=== PATIENT | female | born 1980 | race African-American/Black ===

== ENCOUNTER 2016-06-18 09:27 | Inpatient (IN) | payer OTHER ==
[~2016-06-18] VITALS: Ht 154.9 cm; Wt 69.3 kg
[2016-06-18 10:41] LABS: BASOPHILS 0.1 % (0-2); EOSINOPHILS 0 % (0-7); HEMATOCRIT 46.1 % (36.0-48.0); HEMOGLOBIN 14.3 g/dL (12-16); IMMATURE GRANULOCYTES 0.7 % (0-5); LYMPHOCYTES 7.4 % (15-50); MCH 25.6 pg (26.0-34.0); MCV 82.5 fL (80.0-100.0); MEAN PLATELET VOLUME 11.8 fL (7.4-10.4); MONOCYTES 8.3 % (2-11); NEUTROPHILS 83.5 % (40-80); PLATELET COUNT 173 10x3/uL (130-400); RBC 5.59 10x6/uL (4.00-5.40); RDW 12.7 % (11.5-14.5)
[2016-06-18 11:13] LABS: HCG SERUM NEGATIVE (NEGATIVE)
[2016-06-18 11:20] LABS: ALBUMIN 2.7 g/dL (3.4-5.0); ANION GAP 24.2 mmol/L (8-16); BILIRUBIN - TOTAL 0.85 mg/dL (0.2-1.3); CALCIUM 8.7 mg/dL (8.5-10.1); CARBON DIOXIDE 18.2 mmol/L (21.0-32.0); CREATININE - SERUM 1.4 mg/dL (0.6-1.3); POTASSIUM - SERUM 5.4 mmol/L (3.5-5.1); PROTEIN - SERUM 7.4 g/dL (6.4-8.2)
[2016-06-18 11:30] LABS: KETONE - SERUM SMALL mg/dL (NEGATIVE)
[2016-06-18 11:58] LABS: AMYLASE - SERUM 24 U/L (25-115); LIPASE 60 U/L (73-393); MAGNESIUM - SERUM 2.1 mg/dL (1.8-2.4)
[2016-06-18 12:33] LABS: APPEARANCE CLEAR (CLEAR); BACTERIA NONE SEEN /hpf (NONE SEEN); BILIRUBIN NEGATIVE (NEGATIVE); COLOR YELLOW (YELLOW); EPITHELIAL CELLS NSEEN /hpf (0-5); GLUCOSE 1000 mg/dL (NEGATIVE); KETONE MODERATE mg/dL (NEGATIVE); LEUKOCYTE ESTERASE TRACE (NEGATIVE); NITRITE NEGATIVE (NEGATIVE); PROTEIN TRACE mg/dL (NEGATIVE); UROBILINOGEN NORMAL (NORMAL)
--- NOTE | 2016-06-18 19:30 | NUR ---
RECEIVED PT VIA WC FROM ED, PT TO ROOM 1215, PT TRANSFERS SELF TO BED WITH NO DIFFICULTY, PT ORIENTED TO ROOM, BED IN LOW POSITION, SIDE RAILS X 2, CALL LIGHT IN REACH
--- NOTE | 2016-06-18 19:35 | NUR ---
ADMITTING ASSESSMENT AND HISTORY STARTED, SEE FLOW SHEETS, VS OBTAINED PER RHIANNON BECKFORD RN
--- NOTE | 2016-06-18 19:50 | NUR ---
DR BRIANNA LANGFORD
--- NOTE | 2016-06-18 19:58 | NUR ---
DR REED CALLS UNIT, ORDERS RECEIVED FOR NS TO INFUSE AT 100 ML/HR, ADA DIET, AND CONTACT DR DESOUZA FOR HOME MEDS
[2016-06-18 20:07] VITALS: BP 112/84; BMI 30.3
--- NOTE | 2016-06-18 20:15 | NUR ---
ADMITTING ASSESSMENT AND HISTORY COMPLETED, PT UP TO BR, GAIT STEADY, VOIDED 400 MLS OF DARK YELLOW URINE, PT TO SINK TO WASH HANDS, BACK TO BED, SCD'S APPLIED AND WORKING PROPERLY, PT REQUESTED AND SERVED DIET SODA
[2016-06-18] MEDS ORDERED: LANTUS INSULIN10 ML SC (20:19)
[2016-06-18] MEDS ORDERED: NOVOLOG100 U/M1 SC (20:20)
[2016-06-18] MEDS ORDERED: GLUCOPHAGE500 MG PO (20:20)
--- NOTE | 2016-06-18 20:27 | NUR ---
KENNY NANCE NP PAGED
--- NOTE | 2016-06-18 20:35 | NUR ---
KENNY NANCE, STRATEGIC COMMUNICATIONS MANAGER CALLS UNIT, ORDERS RECEIVED
--- NOTE | 2016-06-18 20:59 | NUR ---
SALINE LOCK CONVERTED TO IV, NS INFUSING AT 100 ML/HR AND DILAUDID ASSOCIATE PROFESSOR INITIATED PER MD ORDERS, SEE EMAR, PT INST ON AND VERBALIZES UNDERSTANDING OF ASSOCIATE PROFESSOR, PT PUSHES BUTTON AT THIS TIME
--- NOTE | 2016-06-18 21:10 | NUR ---
ROCEPHIN INITIATED PER MD ORDERS
--- NOTE | 2016-06-18 21:26 | NUR ---
FSBS OBTAINED PER RHIANNON BECKFORD RN
--- NOTE | 2016-06-18 21:26 | NUR ---
PT DRUG COORDINATOR LIGHT, SCD'S DISCONNECTED, PT UP TO BR, VOIDED 150 MLS OF DARK YELLOW URINE, PT TO SINK TO WASH HANDS, PT BACK TO BED, SCD'S RECONNECTED AND WORKING PROPERLY, REQUESTED AND SERVED SANDWICH TRAY, DENIES FURTHER NEEDS, FAMILY AT BEDSIDE
--- NOTE | 2016-06-18 22:23 | NUR ---
ADM 2100 MEDS, SEE EMAR, SCD'S DISCONNECTED, PT UP TO BR, GAIT STEADY, VOIDED 150 MLS OF DARK YELLOW URINE BY SELF WITH NO DIFFICULTY, PT TO SINK TO WASH HAND, BACK TO BED, SCD'S RECONNECTED AND WORKING PROPERLY, DENIES FURTHER NEEDS
--- NOTE | 2016-06-18 23:00 | NUR ---
PT AMB TO MIGRATORY WORKER, GAIT STEADY, PT WANTS TO WASH UP, WASH CLOTHS, TOWELS, AND ALOE VESTA, ALSO, GOWN AND BRANDEN PANTIES, PT DENIES FURTHER NEEDS
[2016-06-19] VITALS: BP 113/70
--- NOTE | 2016-06-19 | NUR ---
PT TALKING ON PHONE, VS OBTAINED, PT REQUESTED AND SERVED FRESH H20, PT DENIES FURTHER NEEDS
--- NOTE | 2016-06-19 01:10 | NUR ---
PT BONDING MACHINE SETTER LIGHT, SCD'S DISCONNECTED, UP TO BR, VOIDED 300 MLS OF DARK YELLOW URINE BY SELF WITH NO DIFFICULTY, PT TO SINK TO WASH HANDS, BACK TO BED, SCD'S RECONNECTED AND WORKING PROPERLY, RATES ABD PAIN 5/10, DENIES NEEDS AT THIS TIME
--- NOTE | 2016-06-19 02:10 | NUR ---
PT RESTING WITH EYES CLOSED, RESP QUIET, NO DISTRESS NOTED, LEFT UNDISTURBED AT THIS TIME
[2016-06-19 04:19] VITALS: BP 105/64
--- NOTE | 2016-06-19 04:19 | NUR ---
PT RESTING WITH EYES CLOSED, AROUSES TO SOFT VERBAL STIMULATION, VS OBTAINED, I&O'S COLLECTED, PT RATES RIGHT ABD QUAD PAIN 07/04, PT REMOVED SCD'S AND REFUSES TO PUT THEM BACK ON AT THIS TIME, PT DENIES NEEDS
--- NOTE | 2016-06-19 06:00 | NUR ---
PT RESTING WITH EYES CLOSED, RESP QUIET, NO DISTRESS NOTED, LEFT UNDISTURBED AT THIS TIME
--- NOTE | 2016-06-19 06:35 | NUR ---
LAB TO ROOM FOR AM BLOOD DRAW
[2016-06-19 06:59] LABS: BASOPHILS 0 % (0-2); EOSINOPHILS 0.2 % (0-7); HEMATOCRIT 38.5 % (36.0-48.0); HEMOGLOBIN 12.3 g/dL (12-16); IMMATURE GRANULOCYTES 3.1 % (0-5); LYMPHOCYTES 5.9 % (15-50); MCH 25.7 pg (26.0-34.0); MCHC 31.9 g/dL (31.0-37.0); MEAN PLATELET VOLUME 11.6 fL (7.4-10.4); MONOCYTES 8.1 % (2-11); NEUTROPHILS 82.7 % (40-80); PLATELET COUNT 174 10x3/uL (130-400); RBC 4.79 10x6/uL (4.00-5.40); RDW 13.2 % (11.5-14.5); WBC 15.7 10x3/uL (4.8-10.8)
--- NOTE | 2016-06-19 07:00 | NUR ---
SHIFT REPORT TO ELIZABETH FRIAS RN
[2016-06-19 07:01] LABS: MCV 80.4 fL (80.0-100.0)
[2016-06-19 07:11] LABS: CALCIUM 8.6 mg/dL (8.5-10.1); CARBON DIOXIDE 22.7 mmol/L (21.0-32.0); CHLORIDE - SERUM 97 mmol/L (98-107); SODIUM 131 mmol/L (136-145)
[2016-06-19 07:14] LABS: CALC OSMOLALITY 268 mosm/kg (275-300); CREATININE - SERUM 0.8 mg/dL (0.6-1.3); GLUCOSE 197 mg/dL (74-106); POTASSIUM - SERUM 4.3 mmol/L (3.5-5.1); UREA NITROGEN 14 mg/dL (7-18); eGFR NON AFRICAN AMERICAN 87 mL/min (90-120)
[2016-06-19 07:15] VITALS: BP 130/76
--- NOTE | 2016-06-19 07:15 | NUR ---
PT WAS RECEIVED THIS AM LYING IN BED. GEN- AWAKE AND ALERT. LUNGS- CLEAR. HEART- RRR. ABD-SOFT WITH SOME TENDERNESS LOWER ABDOMEN NOTED. EXT WITH SCD'S NOTED. NO EDEMA. PULSES PALPABLE. IV PATENT R CHEST. NS INFUSING AT 100 CC/HR. DILAUDID SUPERVISOR SOLDER MAKING 0.2 Q 10 MIN. FINGERSTICK BS WAS 200. RECEIVED 2 UNITS OF HUMALOG INSULIN SUB CU. BED IS LOW. SIDE RAILS UP X 2 AND CALL LIGHT IS IN REACH. SHE STATES HER PAIN IS A 10 AT THIS TIME.
--- NOTE | 2016-06-19 07:18 | NUR ---
FSBS 200
--- NOTE | 2016-06-19 07:21 | NUR ---
NEW BAG OF NS HUNG IV PER MD ORDERS, SEE EMAR, PT ADM OWN INSULIN PER REQUEST, PT DENIES NEEDS
--- NOTE | 2016-06-19 07:47 | NUR ---
PT C/O NAUSEA. SHE WOULD LIKE TO GET SOME ZOFRAN BEFORE TRYING TO EAT BREAKFAST. ZOFRAN GIVEN IV.
--- NOTE | 2016-06-19 08:00 | NUR ---
PT STATES THAT SHE DOES NOT FEEL SHE CAN EAT REGULAR DIET AT THIS TIME. REQUESTED JELLO AND WATER. TOLERATED THIS WELL.
--- NOTE | 2016-06-19 09:15 | NUR ---
DR WATSON WAS CONSULTED BY DR REED FOR PYELONEPHRITIS. I TALKED TO DR WATSON AND SHE ORDERED A URINE CULTURE TO BE DONE. PT GIVEN SPECIMEN CUP AND INSTRUCTED ON OBTAINING A CLEAN CATCH URINE.
--- NOTE | 2016-06-19 09:58 | NUR ---
PT OBTAINED CLEAN CATCH URINE FOR UA AND CULTURE. SENT TO LAB.
[2016-06-19 09:59] VITALS: Ht 154.9 cm; Wt 69.3 kg
--- NOTE | 2016-06-19 11:11 | NUR ---
PT SI WAKING UP AND GOING TO THE BATHROOM. SHE STATES THAT HER PAIN IS STILL A 5.
--- NOTE | 2016-06-19 12:13 | NUR ---
Pt states she is sick at her stomach. To early to give zofran at this time. Will call md to see if there is something she can have now. It will be 2 more hours before zofran can be given.
--- NOTE | 2016-06-19 12:49 | NUR ---
PT C/O NAUSEA AND ASKED FOR ZOFRAN. EXPLAINED ZOFRAN IS ORDERED Q 6 H. I CALLED YASMINE BECERRA AND SHE CHANGED TO EVERY 4 HRS PRN. GIVEN.
--- NOTE | 2016-06-19 14:30 | NUR ---
PT IS SLEEPING IN BED. BED IS LOW, SIDE RAILS UP X 2 AND CALL LIGHT IN REACH.
--- NOTE | 2016-06-19 14:56 | NUR ---
Patient Name: MANUELA VILLALOBOS Admission Status: ER Accout number: [id number] Admission Date: 06-18-2016 : 1980 Admission Diagnosis: Attending: VARSHA Current LOS: 1 Anticipated DC Date: 06-21-2016 Planned Disposition: Home with Home Health Primary Insurance: [facility] MANAGED MEDICAID Discharge Planning Comments: CM met with patient to discuss discharge planning / needs. Patient states her plan is to return home at discharge. States her home environment is safe. States she was completely independent with all ADL's and IADL's prior to hospitalization. States that her , Michael Epperson [phone] or her mother, Melina Howard [phone] home upon discharge. Patient states that one of her physicians told her she would probably go home with IV antibiotics and a PICC line. CM informed patient about home health services with [facility] for IV antibiotics and PICC line care. Patient chose [facility]st, then [facility] and [facility] as her 3rd choice. CM called [facility] and [facility] neither agency is in network with patient's insurance. CM called [facility] with referral information. Awaiting call back for determination. Patient denies any other discharge planning needs at this time. CM will follow up with home health. CM will continue to assist as needed with discharge planning / needs. Is the patient Alert and Oriented? Yes * How many steps to enter\exit or inside your home? 2 * PCP STATES DR DESOUZA IS GOING TO BE MY PCP * Pharmacy [facility] * Preadmission Environment Home with Family * ADLs Independent * Equipment None * List name and contact numbers for known caregivers / representatives who currently or will assist patient after discharge: SPOUSE, MICHAEL EPPERSON [phone]. MOTHER, MELINA HOWARD [phone] * Community resources currently utilized None * Additional services required to return to the preadmission environment? No * Can the patient safely return to the preadmission environment? Yes * Has this patient been hospitalized within the prior 30 days at any hospital? No Location Director: Tala Mckeon
--- NOTE | 2016-06-19 16:40 | NUR ---
PT IS RESTING IN BED. OFFERS NO COMPLAINTS. BED IS LOW, SIDE RAILS UP X 2 AND CALL LIGHT IN REACH.
--- NOTE | 2016-06-19 17:49 | NUR ---
PTS BS WAS 227. 8 UNITS OF HUMALOG GIVEN.
--- NOTE | 2016-06-19 17:49 | NUR ---
PTS BS WAS CHECKED AND WAS 272. 8 UNITS OF INSULIN GIVEN.
[2016-06-19 19:25] VITALS: BP 125/73
--- NOTE | 2016-06-19 19:25 | NUR ---
ASSESSMENT PER FLOW SHEET, VS OBTAINED, IV IN RIGHT CHEST INTACT WITH NO REDNESS OR EDEMA INFUSING VIA PUMP NS AT 100 ML/HR, DILAUDID MANAGER SHIFT TO DELIVER 0.2MG/10MINS PER PT'S DEMAND FOR PAIN CONTROL, PT RATES ABD PAIN 09/03, MANAGER SHIFT BUTTON NOTED TO BE GREEN, ENC PT TO PUSH BUTTON AT THIS TIME, PT DID NOT PUSH, PT INST ON THAT IS WHAT WILL HELP HER WITH HER PAIN, PT VERBALIZES UNDERSTANDING, PT REPORTS FLATUS, BM TODAY AND VOIDING BY SELF WITH NO DIFFICULTY, PT REQUESTS SCD'S OFF AT THIS TIME, INFORMED PT WILL PLACE AT BEDTIME, PT VERBALIZES UNDERSTANDING, DENIES NEEDS AT THIS TIME
--- NOTE | 2016-06-19 20:14 | NUR ---
PT SITTING UP IN RECLINER, REQUESTED AND SERVED DIET LEMON NAKNEK SODA, DENIES FURTHER NEEDS
--- NOTE | 2016-06-19 21:12 | NUR ---
PT SITTING UP IN RECLINER, FSBS 172
--- NOTE | 2016-06-19 21:16 | NUR ---
THIS RN AND PEPE SPRINGER, RN IN ROOM TO VERIFY INSULIN, ADM 2100 MEDS, SEE EMAR, PT ADM HUMALOG PER SELF, THIS RN ADM TRACY, PT INST ON HOW TO USE PEN, PT VERBALIZES UNDERSTANDING, SNACK PROVIDED, PT DENIES FURTHER NEEDS
--- NOTE | 2016-06-19 22:35 | NUR ---
PT ELECTRICAL CONTROLS TECHNICIAN LIGHT, PT REPORTS VOIDING, EMPTIED 500 MLS OF LIGHTLY BLOOD TINGED URINE, PT ON MENSES, PT REQUESTED AND SERVED FRESH H20, PT DENIES FURTHER NEEDS
[2016-06-19 23:25] VITALS: BP 116/78
--- NOTE | 2016-06-19 23:25 | NUR ---
PT GETTING READY FOR BED, VS OBTAINED, REFUSES SCD'S, PT DENIES NEEDS AT THIS TIME
--- NOTE | 2016-06-20 01:30 | NUR ---
PT RESTING WITH EYES CLOSED, RESP QUIET, NO DISTRESS NOTED, LEFT UNDISTURBED AT THIS TIME
[2016-06-20 03:20] VITALS: BP 116/78
--- NOTE | 2016-06-20 03:20 | NUR ---
PT AWAKE, VS OBTAINED, I&O'S COLLECTED, PT RATES ABD PAIN 09/03, ENC PT TO PUSH GENERAL ACCOUNTANT BUTTON THIS TIME, PT PUSHES BUTTON, PT REQUESTED AND SERVED CUP OF ICE, PT DENIES FURTHER NEEDS
--- NOTE | 2016-06-20 03:55 | NUR ---
PT MATRIX WORKER LIGHT, PT REQUESTED AND PROVIDED BRANDEN PADS AND PANTIES, PT REPORTS VOIDING 700 MLS BY SELF WITH NO DIFFICULTY, PT DENIES FURTHER NEEDS
--- NOTE | 2016-06-20 05:05 | NUR ---
PT LINT CLEANER LIGHT, PT UP IN ROOM, PT TO SCALES, WEIGHT 149, PT BACK TO ROOM FOR AM BLOOD DRAW
--- NOTE | 2016-06-20 06:00 | NUR ---
PT COLOR STRAINER LIGHT, REPORTS SHE VOIDED 100 MLS BY SELF WITH NO DIFFICULTY
[2016-06-20 06:13] LABS: BASOPHILS 0.1 % (0-2); EOSINOPHILS 0.2 % (0-7); HEMATOCRIT 37.5 % (36.0-48.0); HEMOGLOBIN 12.1 g/dL (12-16); IMMATURE GRANULOCYTES 2.8 % (0-5); LYMPHOCYTES 8.2 % (15-50); MCH 25.7 pg (26.0-34.0); MCHC 32.3 g/dL (31.0-37.0); MCV 79.8 fL (80.0-100.0); MEAN PLATELET VOLUME 11.1 fL (7.4-10.4); MONOCYTES 9.6 % (2-11); NEUTROPHILS 79.1 % (40-80); PLATELET COUNT 182 10x3/uL (130-400); RDW 13.4 % (11.5-14.5); WBC 19.2 10x3/uL (4.8-10.8)
[2016-06-20 06:34] LABS: CALC OSMOLALITY 268 mosm/kg (275-300); CALCIUM 8.6 mg/dL (8.5-10.1); CARBON DIOXIDE 21.5 mmol/L (21.0-32.0); CHLORIDE - SERUM 98 mmol/L (98-107); CREATININE - SERUM 0.8 mg/dL (0.6-1.3); GLUCOSE 203 mg/dL (74-106); POTASSIUM - SERUM 3.4 mmol/L (3.5-5.1); SODIUM 132 mmol/L (136-145); UREA NITROGEN 8 mg/dL (7-18); eGFR NON AFRICAN AMERICAN 87 mL/min (90-120)
--- NOTE | 2016-06-20 06:56 | NUR ---
SHIFT REPORT TO DAY SHIFT
--- NOTE | 2016-06-20 07:30 | NUR ---
PT IS RECEIVED LYING IN BED. PT IS SLEEPING. AWAKENS EASILY. PT STATES HER PAIN IS A 7. I ENCOURAGED HER TO USE HER KITMAN. GEN- AWAKE AND ALERT, LUNGS- CLEAR. HEART- RRR. ABD- SOFT WITH TENDERNESS RUQ. EXT- NO EDEMA NOTED. IV WITH SWELLING NOTED R CHEST AREA AND IS TENDER TO TOUCH. IV INFILTRATED. D'CD IV WITH TIP INTACT. IV WAS RESITED TO LEFT HAND AND IS PATENT. SCD'S NOTE BILATERAL LE. BED IS LOW, SIDE RAILS UP X 2 AND CALL LIGHT IS IN REACH.
[2016-06-20 08:02] VITALS: BP 117/77
--- NOTE | 2016-06-20 08:51 | NUR ---
JOSE ENRIQUE MCDANIELS IV ACCESS NURSE STARTED NEW IV L HAND. SALINE LOCKED AND IV SITE COVERED WITH GLOVE FOR PT TO TAKE A SHOWER.
--- NOTE | 2016-06-20 08:57 | NUR ---
I TALKED TO BECCA CHAPA RN INFECTION CONTROL NURSE ABOUT BLOOD CULTURE - COAGULASE NEGATIVE STAPH ON 2ND BLOOD CULTURE. IST ONE WAS NO GROWTH. SHE STATES THAT THAT IS A CONTAMINANT USUALLY AND SHE REQUIRES NO ISOLATION.
--- NOTE | 2016-06-20 09:42 | NUR ---
PT HAD NAUSEA AND VOMITING. GIVEN ZOFRAN AND OTHER 9 AM MEDS.
--- NOTE | 2016-06-20 09:54 | NUR ---
DR WATSON IS HERE TO SEE PT. NEW ORDERS NOTED.
--- NOTE | 2016-06-20 09:55 | NUR ---
CM received call back from Kailee Bonner with [facility]. Agency is in network with patient's insurance and agency will accept referral. Informed agency that CM will continue to follow patient and will keep agency apprised of pending discharge and discharge needs.
--- NOTE | 2016-06-20 11:48 | NUR ---
PTS BS TAKEN WHICH WAS 191. SHE WAS GIVEN 4 UNITS OF HUMALOG INSULIN.
--- NOTE | 2016-06-20 11:56 | NUR ---
PTS BS WAS 191. 4 UNITS OF HUMALOG INSULIN GIVEN. PT IS SITTING ON SIDE OF BED. LUNCH SERVED.
--- NOTE | 2016-06-20 12:30 | NUR ---
PT IS SLEEPING. BED IS LOW, SIDE RAILS UP X 2 AND CALL LIGHT IN REACH.
--- NOTE | 2016-06-20 13:40 | NUR ---
PT IS SLEEPING. BED IS LOW. SIDE RAILS UP X 2 AND CALL LIGHT IN REACH.
--- NOTE | 2016-06-20 14:58 | NUR ---
US DEPT CALLED AND WANTED TO KNOW WHAT WAS BEING LOOKED AT ON LIMITED US. SHE STATES [facility] THEY WILL PROBABLY WANT A COMPLETE US TO LOOK AT BOTH KIDNEYS AND ASKED ME TO CALL DR REED. CONTACTED DR REED AND HIS NURSE OK'D COMPLETE ABDOMINAL US. US NOTIFIED.
--- NOTE | 2016-06-20 15:36 | NUR ---
PT IS SLEEPING. BED IS LOW, SIDE RAILS UP X 2 AND CALL LIGHT IN REACH.
--- NOTE | 2016-06-20 17:47 | NUR ---
DR REED HERE TO SEE PT. HE STATES THAT HER US RESULTS NOT COMPLETED YET. CONTINUE CURRENT PLAN OF CARE.
--- NOTE | 2016-06-20 18:13 | NUR ---
PT IS RESTING. OFFERS NO COMPLAINTS. BED IS LOW SIDE RAILS UP X 2 AND CALL LIGHT IN REACH. IV PATENT LEFT HAND.
[2016-06-20 19:30] VITALS: BP 125/76
--- NOTE | 2016-06-20 19:30 | NUR ---
AWAKE DURING INITIAL ROUNDS. INTRODUCED SELF. V/S TAKEN. ASSESSMENT DONE. STATUS PYELONEPHRITIS R KIDNEY. WITH IVF NS TO L HAND @ 100cc/hr. IV SITE OK. ON DILAUDID APPLIED SCIENCE AND TECHNOLOGIES DEAN FOR PAIN CONTROL.
--- NOTE | 2016-06-20 21:19 | NUR ---
FSBS @ HS 177mg/dl. HUMALOG 4units SQ GIVEN. LANTUS 10units GIVEN ORDERED AT HS. ROCEPHIN 1G IVPB INFUSING. NO ADVERSE REACTION NOTED. SPOUSE AND DAUGHTER IN THE ROOM VISITING.
--- NOTE | 2016-06-20 21:50 | NUR ---
TAKING A SHOWER. COMPLETE BED LINEN CHANGED.
[2016-06-21 01:19] VITALS: BP 111/70
--- NOTE | 2016-06-21 01:27 | NUR ---
V/S STABLE. UP TO THE BATHROOM. VOIDED.
--- NOTE | 2016-06-21 04:05 | NUR ---
EYES CLOSED. LEFT UNDISTURBED.
--- NOTE | 2016-06-21 06:24 | NUR ---
FSBS 186mg/dl. HUMALOG 4units SQ TO ABD LLQ. SEE E-MAR. SLEFT ON AND OFF DURING THE NIGHT. CONTINUING PLAN OF CARE.
[2016-06-21 07:28] LABS: BASOPHILS 0.1 % (0-2); EOSINOPHILS 0.1 % (0-7); HEMATOCRIT 34.6 % (36.0-48.0); IMMATURE GRANULOCYTES 1.6 % (0-5); LYMPHOCYTES 9.8 % (15-50); MCH 25.2 pg (26.0-34.0); MCHC 31.8 g/dL (31.0-37.0); MCV 79.4 fL (80.0-100.0); MEAN PLATELET VOLUME 10.5 fL (7.4-10.4); MONOCYTES 6.9 % (2-11); NEUTROPHILS 81.5 % (40-80); PLATELET COUNT 182 10x3/uL (130-400); RBC 4.36 10x6/uL (4.00-5.40); RDW 13.6 % (11.5-14.5)
[2016-06-21 07:29] LABS: WBC 13.8 10x3/uL (4.8-10.8)
[2016-06-21 07:42] LABS: CALC OSMOLALITY 271 mosm/kg (275-300); CALCIUM 7.9 mg/dL (8.5-10.1); CARBON DIOXIDE 23.8 mmol/L (21.0-32.0); CHLORIDE - SERUM 100 mmol/L (98-107); CREATININE - SERUM 0.7 mg/dL (0.6-1.3); GLUCOSE 164 mg/dL (74-106); POTASSIUM - SERUM 3.3 mmol/L (3.5-5.1); SODIUM 135 mmol/L (136-145); UREA NITROGEN 6 mg/dL (7-18); eGFR NON AFRICAN AMERICAN > 90 mL/min (90-120)
--- NOTE | 2016-06-21 07:45 | NUR ---
PATIENT SITTING UPRIGHT IN HER BED WITH MEAL TRAY IN FRONT OF HER, SHE IS TALKING ON THE PHONE AND TEARFUL. ALLOWED VS. THEY ARE STABLE. SHE DENIES NEEDS.
--- NOTE | 2016-06-21 07:50 | NUR ---
PATIENT IS AWAKE AND ALERT, SITTING UP IN HER BED TALKING ON THE PHONE. NO EVIDENCE OF NEEDS.
--- NOTE | 2016-06-21 12:10 | NUR ---
PATIENT SITTING UP IN HER BED TALKING ON THE PHONE AND VISITING WITH MYSELF AND THE NURSE WITNESS WITHOUT EVIDENCE OF PAIN OR DISTRESS. HER IVF ARE INFUSING TO THE LEFT HAND. INSULIN GIVEN PER SLIDING SCALE. SHE WAS FRUSTERATED WHEN TOLD HER BLOOD SUGAR BUT RELEAVED WHEN TOLD HER IV ABT SOLUTION IS MIXED IN 5% DEXTROSE WATER. SHE UNDERSTANDS THAT HER BLOOD SUGARS HAVE BEEN BETTER CONTROLLED BY TAKING HER LANTUS IN THE MORNING AND BY BEING ON A DIABETIC DIET.
--- NOTE | 2016-06-21 16:50 | NUR ---
PATIENT CAME TO DESK ACCOMPANIED A MALE VISITOR STATING THAT SHE HAS TO GO HOME. SHE IS FULLY DRESSED AND IS CARRYING A SHOULDER BAG. EXPLAINED THAT I HAVE TO CALL THE MD AND GET A DISCHAGE ORDER AND FILL OUT PAPERWORK. REQUESTED 30 MINUTES TO ACCOMPLISH THIS. SHE AGREED AND IS WAITING IN HER ROOM.
--- NOTE | 2016-06-21 17:45 | NUR ---
PATIENT WHELED OUT TO WAITING VEHICLE AFTER REVIEWING DISCHARGE INSTRUCTIONS. SHE WAS GIVEN HER PRESCRIPTION FOR ABTS AND PAIN MEDICATIONS. SHE UNDERSTANDS HER FOLLOW UP INSTRUCTIONS AND HER CT SCAN,
[2016-06-22 08:20] LABS: HEPATITIS C ANTIBODY <0.1 (0.0-0.9)
--- NOTE | 2016-06-22 09:03 | NUR ---
JESSE NOTIFIED PEPE ELMORE WITH [facility] THAT HOME HEALTH SERVICES WOULD NOT BE NEEDED. PATIENT WAS DISCHARGED HOME ON ORAL ANTIBIOTICS. PEPE VERBALIZED UNDERSTANDING AND CANCELLED PENDING REFERRAL.
== END 2016-06-21 17:45 | disposition home or self-care (01) | DRG 690 ==
LOC: D.ER 09:27 → D.WS 19:05
PROVIDERS: Emergency Medicine; Student in an Organized Health Care Education/Training Program; ADMIT Family Medicine
DX: N10 Acute pyelonephritis (principal); B96.20 Unspecified Escherichia coli [E. coli] as the cause of diseases classified elsewhere; E11.65 Type 2 diabetes mellitus with hyperglycemia; Z79.4 Long term (current) use of insulin; Z72.0 Tobacco use

== ENCOUNTER → 2016-07-09 19:40 | Outpatient (CLI) | payer OTHER ==
[2016-06-19 09:59] VITALS: BMI 30.2
[~2016-07-09 19:40] MED LIST: GLUCOPHAGE500 MG PO; LANTUS INSULIN10 ML SC; NOVOLOG100 U/M1 SC
[2016-07-09 21:25] LABS: APPEARANCE CLEAR (CLEAR); COLOR YELLOW (YELLOW)
[2016-07-09 21:26] LABS: BILIRUBIN NEGATIVE (NEGATIVE); GLUCOSE 500 mg/dL (NEGATIVE); KETONE NEGATIVE (NEGATIVE); LEUKOCYTE ESTERASE 1+ (NEGATIVE); NITRITE NEGATIVE (NEGATIVE); PROTEIN NEGATIVE (NEGATIVE); RED CELLS - URINE 0-5 /hpf (0-5); UROBILINOGEN NORMAL (NORMAL)
[2016-07-09 21:27] LABS: BACTERIA FEW /hpf (NONE SEEN); EPITHELIAL CELLS 0-5 /hpf (0-5)
== END | disposition home or self-care (01) ==
LOC: D.LABREF 19:40
PROVIDERS: Urology
DX: R82.90 Unspecified abnormal findings in urine (principal)

== ENCOUNTER → 2016-07-13 09:11 | Outpatient (CLI) | payer OTHER ==
[2016-06-19 09:59] VITALS: BMI 30.2
== END | disposition home or self-care (01) ==
LOC: D.US 09:11
DX: N12 Tubulo-interstitial nephritis, not specified as acute or chronic (principal)

== ENCOUNTER 2017-03-02 13:48 | Emergency (ER) | payer OTHER ==
[2016-06-19 09:59] VITALS: BMI 30.2
[2017-03-02 14:15] LABS: APPEARANCE CLEAR (CLEAR); BILIRUBIN NEGATIVE (NEGATIVE); COLOR STRAW (YELLOW); GLUCOSE 1000 mg/dL (NEGATIVE); KETONE NEGATIVE (NEGATIVE); NITRITE NEGATIVE (NEGATIVE); PROTEIN NEGATIVE (NEGATIVE); SPECIFIC GRAVITY 1.005 (1.005-1.020); UROBILINOGEN NORMAL (NORMAL)
[2017-03-02 14:33] LABS: BASOPHILS 0.1 % (0-2); EOSINOPHILS 0.2 % (0-7); IMMATURE GRANULOCYTES 0.1 % (0-5); MCH 27.2 pg (26.0-34.0); MCHC 33.3 g/dL (31.0-37.0); MCV 81.6 fL (80.0-100.0); MEAN PLATELET VOLUME 11.1 fL (7.4-10.4); MONOCYTES 6.2 % (2-11); NEUTROPHILS 71.4 % (40-80); PLATELET COUNT 197 10x3/uL (130-400); RBC 5.15 10x6/uL (4.00-5.40); RDW 12.1 % (11.5-14.5); WBC 8.9 10x3/uL (4.8-10.8)
[2017-03-02 14:51] LABS: ALBUMIN 3.5 g/dL (3.4-5.0); ANION GAP 15.3 mmol/L (8-16); BILIRUBIN - TOTAL 0.68 mg/dL (0.2-1.3); CALCIUM 9.1 mg/dL (8.5-10.1); CARBON DIOXIDE 24.8 mmol/L (21.0-32.0); CREATININE - SERUM 1.3 mg/dL (0.6-1.3); POTASSIUM - SERUM 4.1 mmol/L (3.5-5.1); PROTEIN - SERUM 7.6 g/dL (6.4-8.2)
[2017-03-02 15:23] LABS: UDS - AMPHET POSITIVE QUAL (NEGATIVE); UDS - BARB NEGATIVE QUAL (NEGATIVE); UDS - BENZO NEGATIVE QUAL (NEGATIVE); UDS - COCAINE NEGATIVE QUAL (NEGATIVE); UDS - OPIATE NEGATIVE QUAL (NEGATIVE); UDS - PCP NEGATIVE QUAL (NEGATIVE); UDS - THC NEGATIVE QUAL (NEGATIVE)
== END 2017-03-02 18:45 | disposition home or self-care (01) ==
LOC: D.ER 13:48
PROVIDERS: Emergency Medicine
DX: E11.65 Type 2 diabetes mellitus with hyperglycemia (principal); Z79.4 Long term (current) use of insulin; Z91.14 Patient's other noncompliance with medication regimen; F15.10 Other stimulant abuse, uncomplicated; I10 Essential (primary) hypertension; F17.200 Nicotine dependence, unspecified, uncomplicated

== ENCOUNTER 2018-04-03 17:53 | Emergency (ER) | payer MEDICAID ==
[~2018-04-03] VITALS: Ht 154.9 cm; Wt 86.4 kg
[2018-04-03 17:57] VITALS: Ht 154.9 cm; Wt 86.4 kg
[2018-04-03] MEDS ORDERED: GLUCOTROL ER2.5 MG PO (18:00)
[2018-04-03] MEDS ORDERED: TORADOL10 MG PO (18:55)
[2018-04-03 19:23] VITALS: BP 134/82
== END 2018-04-03 19:24 | disposition home or self-care (01) ==
LOC: D.ER 17:53
DX: M54.5 Low back pain (principal); M25.551 Pain in right hip; V43.52XA Car driver injured in collision with other type car in traffic accident, initial encounter; Y93.89 Activity, other specified; Y92.410 Unspecified street and highway as the place of occurrence of the external cause